=== PATIENT | male | born 2005 | race Caucasian/White ===

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

== ENCOUNTER 2023-09-14 21:42 | Emergency (ER) | payer MEDICAID ==
[2023-09-14 22:03] VITALS: BP 160/97; O2SAT 98
--- NOTE | 2023-09-14 22:10 | ED Physician Documentation ---
PD HPI HEENT - Stated complaint Stated Complaint: TOOTH PX - Chief complaint Chief Complaint: Heent - History obtained from History obtained from: Patient, Family - Additional information Additional information: The patient is brought to the emergency department by dad for chief complaint of dental pain. The patient is autistic so dad helps with the history but patient gives some too. The patient has impacted mandibular wisdom teeth bilaterally and has been seen by number of dentist, finally culminating in a visit to . He is supposed to have extraction under anesthesia in October but about a week ago, began to have increased pain in his bilateral mandibular wisdom tooth area, especially on the left. He has not noticed any swelling. He states his mandible "pops" at the TMJ sometimes and he thinks he is tensing up the muscles on that side. The patient denies any other complaints at this time. No fevers or chills. No drainage inside his mouth. No difficulty swallowing or feeling of throat swelling. PD PAST MEDICAL HISTORY - Past Medical History Past Medical History: Yes Cardiovascular: None Respiratory: None Neuro: Other Endocrine/Autoimmune: None GI: None : None HEENT: None Psych: Anxiety, ADD/ADHD, Other Musculoskeletal: None Derm: None Other Past Medical History: autism - Past Surgical History Past Surgical History: Yes HEENT: Myringotomy (tubes) - Present Medications Home Medications: Ambulatory Orders Medication Instructions Recorded Confirmed Amoxicillin 500 mg PO TID 7 Days #21 cap 09/14/23 HYDROcod/ACETAM 5/325 [Chester 5/325] 1 - 2 tablet PO Q6H PRN #14 tablet 09/14/23 OLANZapine [Zyprexa] 15 mg PO HS 09/14/23 09/14/23 - Allergies Allergies/Adverse Reactions: Allergies Allergy/AdvReac Type Severity Reaction Status Date / Time No Known Drug Allergies Allergy Verified 09/14/23 21:55 - Social History Does the pt smoke?: No Smoking Status: Never smoker Does the pt drink ETOH?: No Does the pt have substance abuse?: No - Immunizations Immunizations are current?: Yes - POLST Patient has POLST: No PD ED PE NORMAL - Vitals Vital signs reviewed: Yes - General General: Alert and oriented X 3, No acute distress, Well developed/nourished - HEENT HEENT: Atraumatic, PERRL, EOMI, Moist mucous membranes, Other (Decay of L wisdom teeth, no edema of gingiva or buccal mucosa.) - Respiratory Respiratory: No respiratory distress - Derm Derm: Normal color, Warm and dry, No rash - Extremities Extremities: No deformity - Neuro Neuro: Alert and oriented X 3 - Psych Psych: Normal mood, Normal affect Results - Vitals Vitals: Oxygen O2 Source Room air PD Medical Decision Making - ED course Complexity details: considered differential, d/w patient, d/w family ED course: The pt was started on antibiotics and analgesia. We have discussed the need for definitive follow up with the dentist and the usual indications for return. Departure - Departure Disposition: Home, Self Care Clinical Impression: Pain due to dental caries Condition: Stable Instructions: ED Tooth Pain Prescriptions: Amoxicillin 500 mg PO TID 7 Days #21 cap HYDROcod/ACETAM 5/325 [Chester 5/325] 1 - 2 tablet PO Q6H PRN #14 tablet PRN Reason: Pain Comments: Prescriptions for antibiotic and pain medication been electronically transmitted to the [facility] pharmacy in [place]. Please pick these up in the morning and take the next dose of antibiotics them. You have been given a prepack of pain medication to take home to get you through the night, should you need another dose or 2. Please take all of the antibiotics until the course is complete. Please follow-up with the dentist as planned for definitive care of your teeth. Forms: PCP List Discharge Date/Time: 09/14/23 22:30
[2023-09-14] MEDS: AMOXICILLIN 125 MG CHEW TABLET PO STA (22:22)
[2023-09-14] MEDS: HYDROcod/ACETAM 5/325 MG TABLET PO STA (22:22)
[2023-09-14] MEDS: HYDROcod/ACET 5/325 Prepack 4 PO STA (22:23)
== END 2023-09-14 22:30 | disposition home or self-care (01) ==
LOC: ED 21:42
DX: K02.9 Dental caries, unspecified (principal)
CPT/HCPCS: 99283; A9270